=== PATIENT | female | born 1975 | race Caucasian/White ===

== ENCOUNTER 2017-01-09 21:13 | Emergency (ER) | payer OTHER ==
[2017-01-09 21:20] VITALS: BP 118/71; BMI 20.9
[2017-01-09] MEDS ORDERED: TORADOL 60 MG VIAL IM ONE (21:53)
--- NOTE | 2017-01-09 21:54 | DR.GENAD ---
HPI - PCP Primary Care Physician: ADELSO - HPI Comment HPI Comment: HISTORY BELOW. - Complaint/Symptoms Chief Complaint Doctors Comments: PAIN LEFT CLAVICLE AND NECK. INJRED NECK AND CLAVICLE YESTERDAY WHEN HER SON FELL ON HER WHILE PLAYING. NO HEAD TRAUMA. SHE HEARD POPPING SOUNG WHRN INJURY OCCURED. Chief Complaint:: INJURED LEFT COLLAR BONE - Nurses notes reviewed Nurses Notes Review: Yes - Source History Provided: Patient - Mode of Arrival Mode of Arrival: Ambulatory - Timing Onset of Chief Complaint: 01/08/17 Came on: Suddenly - Duration Duration: Constant Duration: Days - Severity Severity: Moderate PMH - PMH Past Medical History: No Past Medical History: Headaches Past Surgical History: Yes Surgical History: Hysterectomy Past Surgical History Comment: LEFT ROTATOR CUFF REPAIR - Family History History of Family Medical Conditions: Yes Family Medical History: Hypertension Family Medical History Comment: SEIZURES - Social History Does patient currently use any type of tobacco product: Yes Have you used tobacco products in the last 12 months: Yes Type of Tobacco Use: Cigarettes Does any household member use tobacco: No Alcohol Use: None Do you use any recreational Drugs:: No Lives With: Family Lives Where: Home - infectious screening In the last 2 months have you had wt loss of >10#?: NO Have you had fever, night sweats or hemotysis?: No Have you traveled outside the country in the last 6 months?: No Isolation: Standard ROS - Review of Systems Constitutional: No Symptoms Reported Eyes: No Symptoms Reported ENTM: No Symptoms Reported Respiratoy: No Symptoms Reported Cardiovascular: No Symptoms Reported Gastrointestinal/Abdominal: No Symptoms Reported Genitourinary: No Symptoms Reported Neurological: No Symptoms Reported Musculoskeletal: Neck (PAIN AND DECREASE ROM LEFT SIDE OF NECK.) Integumentary: No Symptoms Reported Hematologic/Lymphatic: No Symptoms Reported Endocrine: No Symptoms Reported PE - Vital Signs Vitals: Temperature 98.7 F Pulse Rate 92 Respiratory Rate 18 Blood Pressure 118/71 O2 Sat by Pulse Oximetry 97 - General Limitations: No Limitations General Appearance: Alert - Head Head Exam: Normal Inspection - Eyes Eye exam: Normal Appearance - ENT ENT Exam: Normal External Ear Exam External Ear Exam: Normal External Inspection TM/Canal Exam: Bilateral Normal Nose Exam: Normal Nose Exam Mouth Exam: Normal Inspection Throat Exam: Normal Inspection - Neck Neck Exam: Trachea Midline, Tenderness (LEFT LATERAL NECK), Other (TENDERNESS DISTAL WITH SWELLING. LEFT CLAVICLE.) - Chest Chest Inspection: Symmetric Chest Wall Rise - Respiratory Respiratory Exam: Normal Lung Sounds Bilat Respiratory Exam: Bilateral Clear to Auscultation - Cardiovascular Cardiovascular Exam: Regular Rate, Normal Rhythm, Normal Heart Sounds - Abdominal Exam Abdominal Exam: Normal Inspection - Extremities Extremities Exam: Normal Inspection - Back Back Exam: Normal Inspection - Neurologic Neurological Exam: Alert, Oriented X3 - Psychiatric Psychiatric Exam: Normal Affect, Normal Mood - Skin Skin Exam: Normal Color MDM - Differential Diagnosis Differential Diagnosis: NECK SPRAIN, FRACTURE, CLAVICLE CONTUSION, FRACTURE Course - Treatment Treatment: SEE ORDERS - Reevaluation 1st: Improved (WITH MED.) - Education/Counseling Education/Counseling: Patient, Education Educated On: Treatment, Diagnosis, Needs for Follow Up ROR - XRAY XRAY Interpreted by: Radiologist XRAY Findings: REPORT DISCUSS WITH PATIENT. - Diagnosis Discharge Problem: Neck muscle strain Qualifiers: Encounter type: initial encounter Qualified Code(s): S16.1XXA - Strain of muscle, fascia and tendon at neck level, initial encounter Contusion of left clavicle Qualifiers: Encounter type: initial encounter Qualified Code(s): S40.012A - Contusion of left shoulder, initial encounter - Discharge Plan Disposition: HOME, SELF-CARE Condition: Stable Prescriptions: Cyclobenzaprine HCl [FLEXERIL 10 MG *] 10 mg PO TID PRN #20 tab PRN Reason: Ibuprofen [MOTRIN TAB 600 MG *] 600 mg PO TID PRN #20 tab PRN Reason: Pain/Inflammation Tramadol HCl 50 mg PO Q8H PRN #15 tab PRN Reason: Pain - Follow ups/Referrals Follow ups/Referrals: MELCHOR DARDEN [Primary Care Provider] - 2 days - Instructions Instructions: Cervical Strain and Sprain With Rehab-Sports[facility] Additional Instructions: return to ed if worse.
[2017-01-09] MEDS ORDERED: TORADOL 60 MG VIAL ONE (21:59)
--- NOTE | 2017-01-09 22:30 | RAD ---
Two views of the left shoulder Indication: Left clavicular pain post trauma Findings: There is no fracture dislocation within the left clavicle. AC and glenohumeral joint align ment are maintained. No displaced left-sided rib fracture. Impression: No acute radiographic abnormality within the left clavicle. Reported By:
--- NOTE | 2017-01-09 22:32 | RAD ---
6 views of the cervical spine Indication: Neck pain Findings: There is loss of normal cervical lordosis with exaggerated kyphosis of the cervical spine. There is multilevel spondylosis with disc osteophyte complex noted at C5-6 and C6-7. There is no di sc space widening, vertebral height loss or cortical disruption identified to suggest acute injury. No prevertebral soft tissue swelling. There is slightly anterior translation of the posterior arch o f C1 with respect to C2 however there is no malalignment or asymmetry of the atlantoaxial joint. No definite fracture identified within the dens . No significant bony neural foraminal stenosis. Impression: Exaggerated kyphosis of the cervical spine suspicious for severe muscle spasm the common no acute fracture spinal ceases or prevertebral soft tissue swelling identified within the cervical spine. Reported By:
[2017-01-09] MEDS ORDERED: ULTRAM PO ONE (22:43)
[2017-01-09] MEDS ORDERED: FLEXERIL TAB 10 MG PO ONE (22:44)
[2017-01-09] MEDS ORDERED: FLEXERIL TAB 10 MG ONE (22:46)
[2017-01-09] MEDS ORDERED: ULTRAM ONE (22:47)
== END 2017-01-09 22:55 | disposition home or self-care (01) ==
LOC: ER 21:24
DX: S16.1XXA Strain of muscle, fascia and tendon at neck level, initial encounter (principal); S40.012A Contusion of left shoulder, initial encounter; X58.XXXA Exposure to other specified factors, initial encounter; Y92.9 Unspecified place or not applicable
CPT/HCPCS: 72050; 73000; 96372; 99282; 99283; J1885

== ENCOUNTER → 2017-04-26 | Outpatient (CLI) | payer OTHER ==
--- NOTE | 2017-04-27 13:32 | MRI ---
MR left shoulder without contrast Indication: Left shoulder pain Technique: Multiplanar multi sequence imaging through the left shoulder without contrast. Findings: Mild AC joint degenerative change is seen with a type 1 acromion. No bone marrow signal abn ormality noted. Neurovascular structures normal. No muscle belly atrophy seen. Biceps tendon is intact. No subacromial/subdeltoid bursitis seen. AC joint shows very minimal DJD. Gl enohumeral joint projects in normal position. The superior glenoid labrum is intact. Subscapularis is normal. Minimal supraspinatus and infraspinatus tendinosis suggested. Small articular surface frayin g at the anterior supraspinatus suggested on coronal images 89 of series 701 and on sagittal image 7 of series 901. There is mild blunting of the anterior glenoid labrum. Impression: 1. Mild blunting of the anterior glenoid labrum. This could be congenital, versus tear. Consider arth rography followup. 2. Mild supraspinatus, infraspinatus tendinosis with articular surface fraying of the anterior supras pinatus fibers. No high-grade tear seen. Reported By:
== END | disposition home or self-care (01) ==
LOC: RAD 11:29
PROVIDERS: ATTEND Nurse Practitioner Family
DX: M25.512 Pain in left shoulder (principal); S43.432A Superior glenoid labrum lesion of left shoulder, initial encounter; X58.XXXA Exposure to other specified factors, initial encounter; M25.812 Other specified joint disorders, left shoulder
CPT/HCPCS: 73221

== ENCOUNTER → 2017-11-13 | Outpatient (CLI) | payer BC ==
[2017-11-13 13:58] LABS: FREE T4 (FREE THYROXINE) 0.86 ng/dL (0.76-1.46); TSH (3RD GENERATION) 1.001 uIU/mL (0.358-3.74)
== END ==
LOC: LAB 13:19
PROVIDERS: ATTEND Physician Assistant
DX: R00.2 Palpitations (principal)
CPT/HCPCS: 36415; 84439; 84443